=== PATIENT | male | born 1990 | race Two or more races ===

== ENCOUNTER 2016-05-21 10:18 | Emergency (ER) | payer MEDICAID ==
[~2016-05-21] VITALS: Ht 165.1 cm; Wt 78.0 kg
[~2016-05-21 10:18] MED LIST: CLINDAMYCIN HC300 MG ORAL; NKM; SULFAMETHOXAZO480 ML ORAL
[2016-05-21] MEDS ORDERED: Norco 10mg/325mg tab ORAL ONE (11:15)
[2016-05-21] MEDS ORDERED: Ketorolac 60mg Inj IM ONE (11:15)
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
[2016-05-21] MEDS ORDERED: ROBAXIN-750750 MG PO (12:48)
[2016-05-21] MEDS ORDERED: IBUPROFEN600 MG ORAL (12:48)
[2016-05-21 13:02] VITALS: BP 141/72
--- NOTE | 2016-05-22 10:28 | Diagnostic Imaging Report ---
Indication: Pain Findings: 3 views of the right shoulder were obtained. No acute fractures, malalignment, erosions or periostitis are identified. Bone mineralization is within normal limits. Soft tissues are unremarkable. Impression: Negative examination of the shoulder.
== END 2016-05-21 13:14 | disposition home or self-care (01) ==
LOC: EMR 11:29
DX: S40.011A Contusion of right shoulder, initial encounter (principal); V43.92XA Unspecified car occupant injured in collision with other type car in traffic accident, initial encounter; Y93.9 Activity, unspecified; Y92.410 Unspecified street and highway as the place of occurrence of the external cause; Z87.09 Personal history of other diseases of the respiratory system; Z87.19 Personal history of other diseases of the digestive system
CPT/HCPCS: 29240; 96372; 99284